=== PATIENT | female | born 1950 | race Two or more races ===

== ENCOUNTER 2018-01-18 10:37 | Inpatient (IN) | payer MEDICARE, OTHER ==
[2018-01-18] VITALS (9 sets, daily range): BP systolic 110–130; BP diastolic 57–67
[~2018-01-18] VITALS: Ht 149.9 cm; Wt 56.2 kg
--- NOTE | 2018-01-18 10:42 | NUR ---
CALLED IN WR- PT IN THE WAITING ROOM Addendum: 01/18/18 at 1205 by VEE PT WAS IN THE RESTROOM WHEN CALLED.
--- NOTE | 2018-01-18 10:54 | NUR ---
PATIENT TRANSPORTED FOR CT VIA GURNEY.
--- NOTE | 2018-01-18 10:55 | NUR ---
bb family for worsening weakness, more confused than normal since . RR IS EVEN AND UNLABORED. SKIN IS HOT TO TOUCH. NON DIAPHORETIC. PLACED ON THE MONITOR. DR KASPER AT FOR EVAL.
[2018-01-18] MEDS ORDERED: MEROPENEM 1 G in IV NS 0.9% 100 ML IV ONE (11:00)
[2018-01-18] MEDS ORDERED: IV NS 0.9% 1,000 ML BAG IV ONE (11:00)
[2018-01-18] MEDS ORDERED: ACETAMINOPHEN 650 MG/SUPP.RECT RC ONE ×2 (11:00→11:40)
[2018-01-18] MEDS ORDERED: CALC500T3 PO (11:22)
[2018-01-18] MEDS ORDERED: METF10004 PO (11:22)
[2018-01-18] MEDS ORDERED: GLIP10TA11 PO (11:22)
[2018-01-18 11:27] LABS: BASOPHILS # (AUTO) 0.3 /CMM (0.0-0.2); BASOPHILS % (AUTO) 1.2 % (0.0-2.0); HEMATOCRIT 44 % (33-45); HEMOGLOBIN 14.7 g/dL (11.5-14.8); LYMPHOCYTES # (AUTO) 0.6 /CMM (0.8-4.8); LYMPHOCYTES % (AUTO) 2.5 % (20.0-44.0); MEAN CORPUSCULAR HEMOGLOBIN 31 PG (26.0-33.0); MEAN CORPUSCULAR HGB CONC 33 g/dl (31.0-36.0); MEAN CORPUSCULAR VOLUME 94 fL (82-100); MONOCYTES # (AUTO) 0.7 /CMM (0.1-1.30); MONOCYTES % (AUTO) 3.1 % (2.0-12.0); NEUTROPHILS # (AUTO) 22.5 /CMM (1.8-8.9); NEUTROPHILS % (AUTO) 93.2 % (43.0-81.0); PLATELET COUNT (AUTO) 346 /CMM (150-450); RDW COEFFICIENT OF VARIATION 13.4 (11.5-15.0); RED BLOOD CELL COUNT(AUTO) 4.73 MIL/uL (4.0-5.2); WHITE BLOOD COUNT (AUTO) 24.1 K/uL (4.3-11.0)
[2018-01-18 11:37] LABS: TROPONIN I < 0.017 ng/mL (0.00-0.056)
[2018-01-18 11:41] LABS: ALANINE AMINOTRANSFERASE 15 U/L (12-78); ALBUMIN 1.8 g/dL (3.4-5.0); ALKALINE PHOSPHATASE 264 U/L (46-116); ASPARTATE AMINOTRANSFERASE 10 U/L (15-37); BILIRUBIN,DIRECT 0.1 mg/dL (0.0-0.2); BILIRUBIN,TOTAL 0.3 mg/dL (0.2-1.0); CALCIUM, SERUM 9.2 mg/dL (8.5-10.1); CARBON DIOXIDE 24 mmol/L (21-32); CHLORIDE 109 mmol/L (98-107); CREATININE 2.6 mg/dL (0.6-1.3); POTASSIUM 4.4 mmol/L (3.5-5.1); SODIUM SERUM 147 mmol/L (136-145); TOTAL PROTEIN, SERUM 7.6 g/dL (6.4-8.2); UREA NITROGEN, BLOOD 75 mg/dL (7-18)
[2018-01-18 11:55] LABS: INR 1.13 (0.87-1.13)
[2018-01-18 11:57] LABS: GLUCOSE 1174 mg/dL (74-106)
[2018-01-18] MEDS ORDERED: POTASSIUM CL. PREMIX PERIPHER. 100 ML ONE (12:12)
[2018-01-18 12:16] LABS: APPEARANCE,URINE Slightly Cloudy (CLEAR); BILIRUBIN,URINE Negative (NEGATIVE); BLOOD, URINE Large Ery/uL (NEGATIVE); KETONES,URINE Negative (NEGATIVE); LEUKOCYTE ESTERASE ,URINE Small (NEGATIVE); NITRITE, URINE Negative (NEGATIVE); PH,URINE 5.5 (5.0-8.0); PROTEIN,URINE 30 mg/dl (NEGATIVE); UGLUCOSE 500 MG/DL mg/dL (NEGATIVE); UROBILINOGEN,URINE 0.2 EU/dL (0.2)
[2018-01-18 12:17] LABS: COLOR,URINE Light yellow (YELLOW)
[2018-01-18 12:26] LABS: RBC,URINE 21-50 /HPF (0-2); WBC,URINE 51-80 /HPF (0-3)
[2018-01-18 12:27] LABS: BACTERIA,URINE Few /HPF (None Seen); SQUAMOUS EPITHELIAL CELL,UR Few /HPF (None Seen)
[2018-01-18] MEDS ORDERED: ONDANSETRON HCL/PF 4 MG/2 ML VIAL IVP PRN (12:30)
[2018-01-18] MEDS ORDERED: ACETAMINOPHEN 650 MG/SUPP.RECT RC PRN (12:30)
[2018-01-18] MEDS ORDERED: NOREPINEPHRINE 8 MG in IV D5W 500 ML IV PRN (12:30)
[2018-01-18] MEDS ORDERED: INSULIN REGULAR, HUMAN 100 UNIT in IV NS 0.9% 99 ML IV PRN ×2 (12:30)
[2018-01-18] MEDS ORDERED: BLOOD SUGAR DIAGNOSTIC 1 EACH STRIP IN SCH (12:30)
[2018-01-18] MEDS ORDERED: INSULIN REGULAR, HUMAN 100 UNIT in IV NS 0.9% 99 ML IV ONE ×2 (12:30)
[2018-01-18] MEDS: POTASSIUM CL. PREMIX PERIPHER. 50 ML IV SCH ×2 (12:46→13:30)
--- NOTE | 2018-01-18 12:47 | NUR ---
PATIENT ASSIGNED TO ICU 256
[2018-01-18] MEDS ORDERED: IV NS 0.9% 1,000 ML IV PRN (13:00)
--- NOTE | 2018-01-18 13:39 | NUR ---
REPORT GIVEN TO JEEVAN DEL ANGEL FOR [facility] ICU 256.
--- NOTE | 2018-01-18 15:01 | NUR ---
RN NOTE Admitted 67 y/o female patient, noted with cnfusion. BS checked still "high" noted in the machine, made MD aware, with order to get glucose level from lab. S/E by Dr. Guzman, to follow alg #2 DKA, faxed to pharmacy the order paper. Skin assessment done, noted with perineal redness, skin is intact. Able to do bed mobility with minimal assist. SR 80's on the monitor. On Insulin drip at 6units/hr. Dr. Guzman made aware for the result "high", said to continue same the alg #2, placed on 7units/hr and follow up with the BMP q4. Maldonado cath intact, noted with clear yellow urine drained to BSD. 2LPM of O2 via NC. No c/o discomfort, no distress at this time. Remained NPO. PIVs intact. Repeat lactic acid 3.9, made Junior PRODUCTION CREW SUPERVISOR aware, with order to give 500mL NS bolus. Family at bedside, updated them re: the POC. All questions and concerns were answered.
[2018-01-18] MEDS ORDERED: IV NS 0.9% 500 ML IV ONE (15:30)
--- NOTE | 2018-01-18 15:33 | NUR ---
RN NOTE BS 785, aware, continue same rate and follow up with BMP
[2018-01-18] MEDS: BLOOD SUGAR DIAGNOSTIC 1 EACH STRIP IN SCH ×8 (16:17→22:58)
[2018-01-18 17:11] LABS: CALCIUM, SERUM 8.5 mg/dL (8.5-10.1); CREATININE 2.3 mg/dL (0.6-1.3)
--- NOTE | 2018-01-18 17:31 | NUR ---
RN NOTE Lab called for result of Na 157 and Glucose 586, 487 from ICU machine, NS @ 125, made Isac AUTO HIKER aware.
[2018-01-18] MEDS: CEFTRIAXONE 1 G in IV D5W 50 ML IV SCH (17:33)
--- NOTE | 2018-01-18 17:43 | NUR ---
RN NOTE Junior FINISHING RANGE OPERATOR called and given order for KCL 40mEq POx1, next BMP @ 2000. K level at this time 4.0.
[2018-01-18] MEDS ORDERED: POTASSIUM CHLORIDE 20 MEQ POWDER PACKET PO ONE (18:00)
--- NOTE | 2018-01-18 19:00 | NUR ---
RN NOTE RECEIVED PT IN NO ACUTE DISTRESS IN BED. PT IS A/O X 1 WITH SOME CONFUSION. PT IS ON RA AND TOLERATING WELL WITH O2 SAT @ 97%. PT HAS HOURLY BLOOD SUGAR CHECKS DUE TO DKA. PT IS ON TELE WITH SR ON THE MONITOR @ 85. PT IS NOT C/O ANY SOB, DIFFICULTY BREATHING OR PAIN AT THIS TIME. PT HAS RIGHT AC 18G THAT IS CLEAN DRY INTACT AND PATENT WITH INSULIN @ 5 UNITS/HR AND NS @ 125ML/HR. BED IN LOW LOCK POSITION WITH RIALS UP X 2. CALL LIGHT WITHIN REACH AND ALL SAFETY MEASURES ENSURED AND CARRIED OUT. WILL CONTINUE TO MONITOR.
--- NOTE | 2018-01-18 20:03 | NUR ---
BLOOD SUGAR 226 PER ALGORITHM SLIDING SCALE INSULIN DRIP DECREASED TO 3 UNITS/HR FROM 5 UNITS/HR
[2018-01-18 20:43] LABS: CALCIUM, SERUM 8.5 mg/dL (8.5-10.1); CREATININE 1.9 mg/dL (0.6-1.3); POTASSIUM 4.9 mmol/L (3.5-5.1)
--- NOTE | 2018-01-18 21:00 | NUR ---
BLOOD SUGAR 169 PER ALGORITHM SLIDING SCALE INSULIN DRIP DECREASED TO 1 UNITS/HR FROM 3 UNITS/HR
--- NOTE | 2018-01-18 21:45 | NUR ---
RN NOTE RECEIVED ORDERS FROM DR BAILEY TO D/C NS AND START D5 1/2NS @ 100ML/HR PER PROTOCOL DUE TO SODIUM @ 160, AND BS 169. READBACK ORDERS PERFORMED AND ORDERS CARRIED OUT.
[2018-01-18] MEDS: IV D5/0.45 NACL 1,000 ML IV PRN (22:09)
--- NOTE | 2018-01-18 22:10 | NUR ---
BLOOD SUGAR 150 PER ALGORITHM SLIDING SCALE INSULIN DRIP DECREASED TO 0.5 UNITS/HR FROM 1 UNITS/HR
--- NOTE | 2018-01-18 22:59 | NUR ---
BLOOD SUGAR 189 PER ALGORITHM SLIDING SCALE INSULIN DRIP INCREASED TO 1 UNITS/HR FROM 0.5 UNITS/HR
[2018-01-18 23:48] LABS: CALCIUM, SERUM 8.6 mg/dL (8.5-10.1); CREATININE 1.9 mg/dL (0.6-1.3); POTASSIUM 5.1 mmol/L (3.5-5.1)
[2018-01-19] VITALS (25 sets, daily range): BP systolic 93–151; BP diastolic 45–77
[2018-01-19] MEDS: BLOOD SUGAR DIAGNOSTIC 1 EACH STRIP IN SCH ×12 (00:07→11:17)
--- NOTE | 2018-01-19 00:08 | NUR ---
BLOOD SUGAR 208 PER ALGORITHM SLIDING SCALE INSULIN DRIP INCREASED TO 3 UNITS/HR FROM 1 UNITS/HR
--- NOTE | 2018-01-19 00:57 | NUR ---
BLOOD SUGAR 174 PER ALGORITHM SLIDING SCALE INSULIN DRIP DECREASED TO 1 UNITS/HR FROM 3 UNITS/HR
--- NOTE | 2018-01-19 02:00 | NUR ---
BLOOD SUGAR 150 PER ALGORITHM SLIDING SCALE INSULIN DRIP DECREASED TO 0.5 UNITS/HR FROM 1 UNITS/HR
--- NOTE | 2018-01-19 03:07 | NUR ---
BLOOD SUGAR 154 PER ALGORITHM SLIDING SCALE INSULIN DRIP INCREASED TO 1 UNITS/HR FROM 0.5 UNITS/HR
--- NOTE | 2018-01-19 04:00 | NUR ---
BS 191 NO CHANGE TO INSULIN DRIP RATE PER PROTOCOL.
--- NOTE | 2018-01-19 05:00 | NUR ---
BS 214 NO CHANGE TO INSULIN PUMP RATE PER PROTOCOL Addendum: 01/19/18 at 0632 by GEORGINA DOWNS RN BLOOD SUGAR AT 0500 WAS 217 AND AN INCREASE IN INSULIN DRIP RATE TO 3 UNIT/HR FROM 1 UNIT/HR.
[2018-01-19 05:20] LABS: CALCIUM, SERUM 8.8 mg/dL (8.5-10.1); CREATININE 1.8 mg/dL (0.6-1.3); MAGNESIUM 2.4 mg/dL (1.8-2.4); PHOSPHORUS 2.2 mg/dL (2.5-4.9); POTASSIUM 4.5 mmol/L (3.5-5.1)
[2018-01-19 05:26] LABS: HEMATOCRIT 41 % (33-45); HEMOGLOBIN 13.2 g/dL (11.5-14.8); RED BLOOD CELL COUNT(AUTO) 4.35 MIL/uL (4.0-5.2); WHITE BLOOD COUNT (AUTO) 21.2 K/uL (4.3-11.0)
[2018-01-19 05:27] LABS: EOSINOPHILS % (AUTO) 0.4 % (0.0-6.0); LYMPHOCYTES % (AUTO) 7.5 % (20.0-44.0); MEAN CORPUSCULAR HEMOGLOBIN 30 PG (26.0-33.0); MEAN CORPUSCULAR HGB CONC 33 g/dl (31.0-36.0); MEAN CORPUSCULAR VOLUME 93 fL (82-100); MONOCYTES % (AUTO) 0.9 % (2.0-12.0); NEUTROPHILS % (AUTO) 91.1 % (43.0-81.0); PLATELET COUNT (AUTO) 332 /CMM (150-450); RDW COEFFICIENT OF VARIATION 14.1 (11.5-15.0)
[2018-01-19 05:56] LABS: BAND % (MANUAL) 2 % (0.0-5.0); LYMPHOCYTES % (MANUAL) 10 % (16-48); MONOCYTES % (MANUAL) 1 % (0-11.0); NEUTROPHILS % (MANUAL) 87 (42-76)
--- NOTE | 2018-01-19 06:00 | NUR ---
BS 214 NO INCREASE TO INSULIN DRIP RATE PER PROTOCOL
--- NOTE | 2018-01-19 06:32 | NUR ---
RN NOTE PT REMAINS IN NO ACUTE DISTRESS IN BED. PT DID NOT HAVE ANY SIGNIFICANT CHANGE IN CONDITION DURING SHIFT. ALL NEEDS MET, ALL ORDERS CARRIED OUT. WILL ENDORSE CARE TO AM RN FOR CONTINUITY OF CARE.
--- NOTE | 2018-01-19 07:10 | NUR ---
RN INITIAL NOTES: Rec'd pt awake on bed, not in any distress, A/O x 1 w/ confusion. On room air, sating at 99%. On telemonitor, SR 76 bpm. Has 2 IV line access: R AC G18, PL, w/ D5 1/2N NS x 100 cc/hr & Insulin Drip x 3 units/hr both infusing well, no s/sx of infection/infiltration noted. Has FC patent & intact, draining to BSB w/ yellowish urine output. Will monitor blood sugar hourly & adjust drip accordingly. Provided comfort & safety measures. Bed kept low & in locked pos. Call light placed w/in reach. Will continue to monitor & attend pt needs.
[2018-01-19] MEDS: IV D5/0.45 NACL 1,000 ML IV PRN ×2 (07:42→18:02)
[2018-01-19] MEDS: PANTOPRAZOLE 40 MG VIAL IV SCH (09:02)
--- NOTE | 2018-01-19 09:30 | NUR ---
Swallow eval done by Stephen, per ST may start pureed diet, pt noted pocketing.
--- NOTE | 2018-01-19 09:57 | NUR ---
Pt seen & examined by AR Chau. Son at bedside. ONCOLOGY REGISTRAR updated about pt's condition.
[2018-01-19] MEDS ORDERED: *INSULIN REGULAR(HUMULIN R)HUM 100 UNIT/ML VIAL SQ PRN (11:00)
[2018-01-19] MEDS ORDERED: DEXTROSE 50%-WATER 50 ML DISP.SYRIN IV PRN (11:00)
[2018-01-19] MEDS ORDERED: INSULIN GLARGINE, 100 UNIT/ML CARTRIDGE SQ ONE (11:30)
[2018-01-19] MEDS: BLOOD SUGAR DIAGNOSTIC 1 EACH STRIP VI SCH ×3 (11:48→21:27)
[2018-01-19] MEDS ORDERED: ACETAMINOPHEN 325 MG TABLET PO PRN (12:00)
[2018-01-19] MEDS ORDERED: NEUTRA PHOS 1 POWD.PACKET PO ONE (12:00)
[2018-01-19] MEDS: INSULIN REGULAR, HUMAN 100 UNIT/ML 3 ML VIAL SQ PRN ×2 (12:52→17:19)
[2018-01-19] MEDS: CEFTRIAXONE 1 G in IV D5W 50 ML IV SCH (17:07)
--- NOTE | 2018-01-19 18:51 | NUR ---
RN CLOSING NOTES: No acute changes noted w/in shift. Pt tolerated room air, no SOB. On telemonitor, still SR. 2 IV line access: R AC G18, PL, w/ D5 1/2N NS x 100 cc/hr both kept patent & intact w/ no s/sx of infection/infiltration noted. FC kept patent & intact, draining to BSB w/ yellowish urine output. Kept well rested. Needs attended. Bed kept low & in locked pos. Call light placed w/in reach. Will endorse to PM RN for SVETLANA. Pt is for transfer out of ICU. Addendum: 01/19/18 at 1924 by KIRILL WHEELER RN Addendum: Called pt jim Drew , informed her pt for transfer out of ICU.
--- NOTE | 2018-01-19 19:00 | NUR ---
MATH AND PHYSICS INSTRUCTOR NOTES Received patient awake,alert,verbally responsive/talking clear but cofuse,follows simple commands at times,picking on lines and tubes .Not in any distress,no pain observed and denies pain.Comfort care done,needs attended.patient uncooperative,fighting when try to assess patient,resisting physical exam.Patient for transfer to telemetry when bed ready.
--- NOTE | 2018-01-19 20:30 | NUR ---
DIRECTOR OF HOTEL OPERATIONS RECEIVING NOTES RECEIVED PATIENT FROM ICU VIA [employer]. PATIENT IS ALERT AND ORIENTED X1. CONFUSED. VERBALLY RESPONSIVE. BREATHING EVEN AND UNLABORED. NO SOB NOTED. NO COMPLAINTS OF PAIN OR DISCOMFORT. NO FACIAL GRIMACING. PATIENT NOTED WITH IV LINE ON RIGHT AC #18 AND LEFT FA #18 - BOTH INTACT AND PATENT - CURRENTLY INFUSING D5 1/2 NS @ 100ML/HR. PATIENT ALSO NOTED WITH CORDERO CATH. DRAINING CLEAR YELLOW URINE. ALL OTHER NEEDS ATTENDED TO. BED ON LOWEST LOCKED POSITION. CALL LIGHT WITHIN REACH. WILL CONTINUE TO MONITOR.
--- NOTE | 2018-01-19 20:30 | NUR ---
SPA COORDINATOR NOTES TRANSFERED TO 314 VIA BED,STABLE,AWAKE.ALERT,CONFUSE.REPORT GIVEN TO PAULINA.
[2018-01-19] MEDS ORDERED: INSULIN GLARGINE, 100 UNIT/ML CARTRIDGE SQ SCH (22:00)
[2018-01-20] VITALS: BP 98/53
--- NOTE | 2018-01-20 00:17 | NUR ---
BRUSH CLEANER NOTES DAUGHTER AT BEDSIDE AND REQUESTED FOR SLEEPING FOR PATIENT. PER DAUGHTER, PATIENT HAD ONLY 1 HOUR OF SLEEP TODAY AND SHE WAS UP ALL NIGHT LAST NIGHT. PER DAUGHTER, PATIENT WAS TAKING A SLEEPING PILL BEFORE AND SHE THINKS IT MIGHT HAVE BEEN "AMBIEN." INFORMED DAUGHTER THAT I WILL PAGE DR. CANTU TO ASK FOR A SLEEPING PILL ORDER. PAGED DR. CANTU AND PER DR. CANTU, OK TO GIVE AMBIEN 5MG PO PRN HS. NOTED AND CARRIED OUT.
[2018-01-20] MEDS: ZOLPIDEM TARTRATE 5 MG TABLET PO PRN ×2 (01:08→23:50)
[2018-01-20 04:18] VITALS: BP 136/85
[2018-01-20] MEDS: IV D5/0.45 NACL 1,000 ML IV PRN (05:13)
[2018-01-20] MEDS: BLOOD SUGAR DIAGNOSTIC 1 EACH STRIP VI SCH ×4 (06:32→22:40)
[2018-01-20] MEDS: INSULIN REGULAR, HUMAN 100 UNIT/ML 3 ML VIAL SQ PRN ×3 (06:32→17:45)
--- NOTE | 2018-01-20 06:45 | NUR ---
INFANTRY OPERATIONS SPECIALIST CLOSING NOTES PATIENT IN BED AWAKE. ALERT AND ORIENTED X1. CONFUSED. VERBALLY RESPONSIVE. BREATHING EVEN AND UNLABORED. NO SOB NOTED. NO COMPLAINTS OF PAIN OR DISCOMFORT. NO FACIAL GRIMACING. PATIENT WITH IV LINE ON RIGHT AC #18 AND LEFT FA #18 - BOTH INTACT AND PATENT - CURRENTLY INFUSING D5 1/2 NS @ 100ML/HR. PATIENT ALSO WITH CORDERO CATH. DRAINING CLEAR YELLOW URINE. SKIN WARM AND DRY TO TOUCH. KEPT CLEAN, DRY, AND COMFORTABLE. ALL OTHER NEEDS ATTENDED TO. BED ON LOWEST LOCKED POSITION. CALL LIGHT WITHIN REACH. WILL ENDORSE TO ONCOMING NURSE FOR CONTINUITY OF CARE.
[2018-01-20 06:58] LABS: BASOPHILS % (AUTO) 0.1 % (0.0-2.0); EOSINOPHILS % (AUTO) 1.3 % (0.0-6.0); HEMATOCRIT 38 % (33-45); HEMOGLOBIN 12.9 g/dL (11.5-14.8); LYMPHOCYTES # (AUTO) 1.7 /CMM (0.8-4.8); LYMPHOCYTES % (AUTO) 9.7 % (20.0-44.0); MEAN CORPUSCULAR HEMOGLOBIN 31 PG (26.0-33.0); MEAN CORPUSCULAR HGB CONC 34 g/dl (31.0-36.0); MEAN CORPUSCULAR VOLUME 90 fL (82-100); MONOCYTES # (AUTO) 0.5 /CMM (0.1-1.30); MONOCYTES % (AUTO) 2.7 % (2.0-12.0); NEUTROPHILS # (AUTO) 15.5 /CMM (1.8-8.9); NEUTROPHILS % (AUTO) 86.2 % (43.0-81.0); PLATELET COUNT (AUTO) 279 /CMM (150-450); RDW COEFFICIENT OF VARIATION 12.9 (11.5-15.0); WHITE BLOOD COUNT (AUTO) 17.9 K/uL (4.3-11.0)
--- NOTE | 2018-01-20 07:40 | NUR ---
BARREL LOADER AND CLEANER OPENING NOTE RECEIVED PATIENT IN BED, SLEEPING, EASILY AROUSED WITH VERBAL STIMULI, PATIENT IS VERBALLY RESPONSIVE BUT HAS DISORGANIZED THOUGHTS AND IS CONFUSED. ON ROOM AIR. TOLERATING WELL. IN NO APPARENT DISTRESS OR DISCOMFORT AT THIS TIME. RESPIRATIONS EVEN AND UNLABORED. PATIENT WITH CORDERO CATH DRAINING CLEAR YELLOW URINE. RAC 18 IVC WITH FLUIDS RUNNING AT 100ML/HR, L FA 18G, SL. PATENT AND INTACT. KEPT CLEAN AND COMFORTABLE. ALL NEEDS ATTENDED. SAFETY MEASURES APPLIED, BED IN LOW LOCKED POSITION, SIDE RAILS UP X2, CALL LIGHT WITHIN EASY REACH. WILL CONTINUE TO MONITOR.
[2018-01-20 08:00] VITALS: BP 133/72
[2018-01-20 08:12] LABS: CALCIUM, SERUM 7.7 mg/dL (8.5-10.1); CREATININE 1.4 mg/dL (0.6-1.3); PHOSPHORUS 3.5 mg/dL (2.5-4.9)
[2018-01-20] MEDS: PANTOPRAZOLE 40 MG VIAL IV SCH (09:41)
--- NOTE | 2018-01-20 10:37 | NUR ---
WOUND CARE CONSULT: PT PRESENTS WITH SACRAL SCARRING, RASH TO PERINEUM AND BUTTOCKS WITH SOME IRRITATED, OPEN SKIN ON BUTTOCKS. RECOMMENDATIONS MADE FOR SKIN PROTECTION AND CARE. DISCUSSED WITH NURSING STAFF. LOW AIRLOSS BED TO BE PLACED (ISOFLEX). PT UNCOOPERATIVE AT TIMES AND AGITATED. PT INCONTINENT OF STOOL. WILL SEE PRN. HINOJOSA IN AGREEMENT WITH PLAN OF CARE. CURRENT BRET SCORE IS 14. Addendum: 01/20/18 at 1039 by MELI QUACH WNDNU Amended: Links added.
[2018-01-20] MEDS ORDERED: Z GUARD REMEDY 2 OZ OINT TP PRN (11:00)
[2018-01-20] MEDS: Z GUARD REMEDY 2 OZ OINT TP SCH (11:00)
[2018-01-20] MEDS: CLOTRIMAZOLE/BETAMETASONE DIPROPIONATE 15 GM TUBE TP SCH ×2 (11:00→17:00)
[2018-01-20 16:00] VITALS: BP 118/65
--- NOTE | 2018-01-20 17:00 | NUR ---
PATIENT NEW PRESCRIPTIONS FOR Z-GUARD AND CLOTRIMAZOLE CREAMS IS NOT AVAILABLE YET. CALLED THE PHARMACY, WAS TOLD THEY WILL BRING IT SOON. WILL CONTINUE TO MONITOR.
[2018-01-20] MEDS: CEFTRIAXONE 1 G in IV D5W 50 ML IV SCH (17:36)
[2018-01-20] MEDS: INSULIN NPH, HUMAN ISOPHANE 100 UNIT/ML CARTRIDGE SQ SCH (17:45)
--- NOTE | 2018-01-20 18:00 | NUR ---
DRESSING CHANGE PERFORMED PER PREVIOUS INSTRUCTIONS DUE TO NEW MEDICATIONS NOT BEING AVAILABLE
--- NOTE | 2018-01-20 19:07 | NUR ---
MS RN CLOSING NOTE PATIENT IN BED, AWAKE. CONFUSED AND LITTLE COMBATIVE. PATIENT IS VERBALLY RESPONSIVE BUT HAS DISORGANIZED THOUGHTS AND IS CONFUSED. ON ROOM AIR. TOLERATING WELL. IN NO APPARENT DISTRESS OR DISCOMFORT AT THIS TIME. RESPIRATIONS EVEN AND UNLABORED. PATIENT WITH CORDERO CATH DRAINING CLEAR YELLOW URINE. RAC 18 IVC SL, LFA 18G, SL. PATENT AND INTACT. KEPT CLEAN AND COMFORTABLE. ALL NEEDS ATTENDED. SAFETY MEASURES APPLIED, BED IN LOW LOCKED POSITION, SIDE RAILS UP X2, CALL LIGHT WITHIN EASY REACH. WILL ENDORSE TO PM NURSE FOR SVETLANA.
--- NOTE | 2018-01-20 19:36 | NUR ---
MS/RN OPENING NOTES PT RECEIVED AWAKE, RESTING COMFORTABLY IN BED. ON ROOM AIR, BREATHING EVEN AND UNLABORED. CONFUSED. PER DAY SHIFT RN, COMBATIVE. PT CALM AT THIS TIME. CORDERO IN PLACE AND DRAINING TO GRAVITY. IV TO RAC PATENT AND INTACT RUNNING IVF TKO. BED IN LOW/LOCKED POSITION WITH CALL LIGHT IN REACH. SIDE RAILS UPX3. BED ALARM ON FOR SAFETY. WILL CONTINUE TO MONITOR
[2018-01-20 20:00] VITALS: BP 124/63
[2018-01-20] MEDS ORDERED: INSULIN GLARGINE, 100 UNIT/ML CARTRIDGE SQ SCH (22:00)
[2018-01-21] MEDS: BLOOD SUGAR DIAGNOSTIC 1 EACH STRIP VI SCH ×2 (07:03→12:11)
[2018-01-21 07:05] LABS: CALCIUM, SERUM 7.7 mg/dL (8.5-10.1); CREATININE 1.2 mg/dL (0.6-1.3); POTASSIUM 4.3 mmol/L (3.5-5.1)
--- NOTE | 2018-01-21 07:15 | NUR ---
RN NOTES PT IS SITTING UP IN BED, AWAKE AND RESTING COMFORTABLY. PT ON RA, RESPIRATIONS ARE EVEN AND UNLABORED. IV ON RAC INTACT AND RUNNING TKO AND LFA INTACT AND SL. CORDERO CATHETER IS IN PLACE AND DRAINING TO GRAVITY. NO SIGNS OF DISTRESS NOTED. SAFETY MEASURES ARE IN PLACE, CALL LIGHT IS IN REACH. WILL CONTINUE TO MONITOR.
[2018-01-21] MEDS: INSULIN REGULAR, HUMAN 100 UNIT/ML 3 ML VIAL SQ PRN ×2 (07:29→12:20)
--- NOTE | 2018-01-21 07:43 | NUR ---
MS/RN CLOSING NOTES PT AWAKE, HOB ELEVATED. CONFUSED. COMBATIVE AT TIME. IV TO LFA PATENT AND INTACT. SNACKS PROVIDED WITH INSULIN. CORDERO IN PLACE AND DRAINING TO GRAVITY. ZGUARD PROVIDED TO PERINEAL AND SACRUM. AWAITING LOTRISONE CREAM FROM PHARMACY. MONITORED FOR S/S OF HYPO/HYPERGLYCEMIA THROUGHOUT SHIFT. TURNED/REPOSITIONED Q2H, HEELS OFFLOADED. NO DIAPER PER ORDER. BED IN LOW/LOCKED POSITION WITH CALL LIGHT IN REACH, SIDE RAILS UPX3 WITH BED ALARM ON. ENDORSED TO DAY SHIFT RN SVETLANA.
[2018-01-21 08:00] VITALS: BP 115/64
[2018-01-21] MEDS: Z GUARD REMEDY 2 OZ OINT TP SCH (09:00)
[2018-01-21] MEDS: CLOTRIMAZOLE/BETAMETASONE DIPROPIONATE 15 GM TUBE TP SCH (09:00)
[2018-01-21] MEDS: PANTOPRAZOLE 40 MG VIAL IV SCH (09:11)
[2018-01-21] MEDS: INSULIN NPH, HUMAN ISOPHANE 100 UNIT/ML CARTRIDGE SQ SCH (09:32)
[2018-01-21] MEDS ORDERED: INSU100V7 SQ (13:21)
[2018-01-21] MEDS ORDERED: CLOT15CR5 TP (13:21)
[2018-01-21] MEDS ORDERED: INSU100C10 SQ (13:24)
[2018-01-21] MEDS ORDERED: [UNRECOGNIZED DRUG - CODE] MC (13:24)
[2018-01-21] MEDS ORDERED: CEFU500T66 PO (13:25)
--- NOTE | 2018-01-21 16:00 | NUR ---
RN NOTES PT WAS DISCHARGED HOME IN STABLE CONDITION IN PRIVATE CAR, ACCOMPANIED BY FAMILY. IV AND ID BAND AND CORDERO CATHETER WERE REMOVED. WOUND DOCUMENTATION PHOTOS WERE TAKEN. DAUGHTER WAS TOLD TO HAVE HER F/U WITH PCP WITHIN 1-2 WEEKS AND TO HAVE NEW PRESCRIPTION FILLED AT PHARMACY. EDUCATIONAL MATERIAL WAS PROVIDED AND PT WAS EDUCATED ON DIABETIC DIET TO FOLLOW AND INSULIN INJECTIONS. BELONGINGS WERE RETURNED TO PT AND PT WAS BROUGHT TO THE LOBBY BY WHEELCHAIR BY JULIANE.
== END 2018-01-21 15:45 | disposition home or self-care (01) | DRG 871 ==
LOC: ER 10:41 → ICU 12:54 → MED 01-19 20:27 → TELE 01-19 21:32 → MED 01-20 09:27
PROVIDERS: ADMIT Nurse Practitioner Acute Care; ATTEND Nurse Practitioner Acute Care
DX: A41.9 Sepsis, unspecified organism (principal); E11.00 Type 2 diabetes mellitus with hyperosmolarity without nonketotic hyperglycemic-hyperosmolar coma (NKHHC); G93.40 Encephalopathy, unspecified; N17.0 Acute kidney failure with tubular necrosis; E11.10 Type 2 diabetes mellitus with ketoacidosis without coma; N17.9 Acute kidney failure, unspecified; N39.0 Urinary tract infection, site not specified; E87.0 Hyperosmolality and hypernatremia; E86.0 Dehydration; E86.1 Hypovolemia; E78.5 Hyperlipidemia, unspecified; F03.90 Unspecified dementia, unspecified severity, without behavioral disturbance, psychotic disturbance, mood disturbance, and anxiety; Z79.84 Long term (current) use of oral hypoglycemic drugs; Z87.891 Personal history of nicotine dependence; Z90.710 Acquired absence of both cervix and uterus; B96.89 Other specified bacterial agents as the cause of diseases classified elsewhere
CPT/HCPCS: 36415; 70450-TC; 71045-TC; 80048-TC; 80061-TC; 80076-TC; 81000-TC; 82947-TC; 82962-TC; 83605-TC; 83735-TC; 83935-TC; 84100-TC; 84484-TC; 85025-TC; 85730-TC; 87040-TC; 87081-TC; 87086-TC; 92611-TC; A4216; A4606; C9113; J0696; J1815; J2185; J3480; J3490; J7030; J7050; J7060; Z7610

== ENCOUNTER 2018-01-25 12:46 | Outpatient (CLI) | payer MEDICARE, OTHER ==
[~2018-01-25 12:46] MED LIST: CALC500T3 PO; CEFU500T66 PO; CLOT15CR5 TP; GLIP10TA11 PO; INSU100C10 SQ; INSU100V7 SQ; METF10004 PO; [UNRECOGNIZED DRUG - CODE] MC
[2018-01-25 12:49] VITALS: BP 95/69
== END 2018-01-25 23:59 | disposition home or self-care (01) ==
LOC: MSC 12:46
PROVIDERS: ATTEND Internal Medicine
DX: E11.65 Type 2 diabetes mellitus with hyperglycemia (principal); Z79.4 Long term (current) use of insulin; I10 Essential (primary) hypertension; F03.90 Unspecified dementia, unspecified severity, without behavioral disturbance, psychotic disturbance, mood disturbance, and anxiety; L30.4 Erythema intertrigo; E78.5 Hyperlipidemia, unspecified; Z87.891 Personal history of nicotine dependence
CPT/HCPCS: 82962; G0463

== ENCOUNTER 2018-02-04 10:47 | Emergency (ER) | payer MEDICARE, MEDICAID ==
[~2018-02-04] VITALS: Ht 149.9 cm; Wt 50.3 kg
--- NOTE | 2018-02-04 10:55 | NUR ---
AAOX3, BIB family c/o face and body pain s/p tripped and fell last night, no ko. RR is even and unlabored with nad noted. skin is warm and dry. Awaiting md for eval.
--- NOTE | 2018-02-04 11:27 | NUR ---
Patient came back from CT.
--- NOTE | 2018-02-04 11:32 | NUR ---
Patient is resting comfortably in bed with eyes closed. Easily aroused. VSS. Patient denies any pain at this time.
[2018-02-04 13:10] VITALS: BP 111/65
--- NOTE | 2018-02-04 13:11 | NUR ---
patient ambulates out of ER with assistance. VSS.
--- NOTE | 2018-02-04 13:11 | NUR ---
Patient discharged to home in stable condition. Written and verbal after care instructions given. Patient verbalizes understanding of instruction.
== END 2018-02-04 13:12 | disposition home or self-care (01) ==
LOC: ER 10:53
DX: S00.83XA Contusion of other part of head, initial encounter (principal); S00.511A Abrasion of lip, initial encounter; F03.90 Unspecified dementia, unspecified severity, without behavioral disturbance, psychotic disturbance, mood disturbance, and anxiety; E11.9 Type 2 diabetes mellitus without complications; Z79.4 Long term (current) use of insulin; W01.198A Fall on same level from slipping, tripping and stumbling with subsequent striking against other object, initial encounter; Y93.01 Activity, walking, marching and hiking; Y92.89 Other specified places as the place of occurrence of the external cause; Y99.8 Other external cause status
CPT/HCPCS: 70450-TC; 70486-TC; A4606; Z7610

== ENCOUNTER 2020-12-22 10:25 | Emergency (ER) | payer MEDICARE, OTHER ==
[~2020-12-22] VITALS: Ht 137.2 cm; Wt 37.6 kg
[~2020-12-22 10:25] MED LIST changes: -CALC500T3 PO; +CALC500T89 PO; +METF-442 PO; -METF10004 PO
--- NOTE | 2020-12-22 11:17 | NUR ---
bibdaughter, c/o R knee pain and swelling s/p fall 3 days ago. Hx multiple falls. Hit head from the previous fall. Pain rate 5/10. Respiration regular and unlabored. Will continue to monitor the patient.
[2020-12-22 12:40] LABS: BASOPHILS % (AUTO) 0.2 % (0.0-2.0); EOSINOPHILS % (AUTO) 0.4 % (0.0-6.0); HEMATOCRIT 42 % (33-45); HEMOGLOBIN 13.6 g/dL (11.5-14.8); LYMPHOCYTES # (AUTO) 1.9 /CMM (0.8-4.8); LYMPHOCYTES % (AUTO) 17.1 % (20.0-44.0); MEAN CORPUSCULAR HGB CONC 33 g/dl (31.0-36.0); MEAN CORPUSCULAR VOLUME 94 fL (82-100); MONOCYTES # (AUTO) 0.6 /CMM (0.1-1.30); MONOCYTES % (AUTO) 5.6 % (2.0-12.0); NEUTROPHILS # (AUTO) 8.6 /CMM (1.8-8.9); NEUTROPHILS % (AUTO) 76.7 % (43.0-81.0); PLATELET COUNT (AUTO) 277 /CMM (150-450); RED BLOOD CELL COUNT(AUTO) 4.42 MIL/uL (4.0-5.2); WHITE BLOOD COUNT (AUTO) 11.2 K/uL (4.3-11.0)
[2020-12-22 12:45] LABS: CALCIUM, SERUM 8.7 mg/dL (8.5-10.1); CREATININE 1.2 mg/dL (0.6-1.3)
[2020-12-22 12:51] LABS: ALBUMIN 2.7 g/dL (3.4-5.0); BILIRUBIN,DIRECT 0.1 mg/dL (0.0-0.2); BILIRUBIN,TOTAL 0.4 mg/dL (0.2-1.0)
--- NOTE | 2020-12-22 13:40 | NUR ---
Patient discharged to home in stable condition. Written and verbal after care instructions given. Patient verbalizes understanding of instruction. The patient left ER with daughter.
[2020-12-22 13:41] VITALS: BP 116/61
== END 2020-12-22 13:41 | disposition home or self-care (01) ==
LOC: ER 10:28
DX: M25.461 Effusion, right knee (principal); M19.90 Unspecified osteoarthritis, unspecified site; F03.90 Unspecified dementia, unspecified severity, without behavioral disturbance, psychotic disturbance, mood disturbance, and anxiety; I10 Essential (primary) hypertension; E11.9 Type 2 diabetes mellitus without complications; Z79.899 Other long term (current) drug therapy; Z79.84 Long term (current) use of oral hypoglycemic drugs; W19.XXXA Unspecified fall, initial encounter; Y93.89 Activity, other specified; Y92.89 Other specified places as the place of occurrence of the external cause; Y99.8 Other external cause status
CPT/HCPCS: 36415; 70450-TC; 72190-TC; 73564-TC; 80048-TC; 80076-TC; 85025-TC